=== PATIENT | female | born 1995 | race Caucasian/White ===

== ENCOUNTER 2016-12-05 03:02 | Inpatient (IN) | payer OTHER ==
[~2016-12-05] VITALS: Ht 157.5 cm; Wt 77.6 kg
[2016-12-05 03:05] VITALS: Ht 157.5 cm; Wt 77.6 kg
[2016-12-05] MEDS ORDERED: LACTATED RINGER'S 1,000 ML IV SCH (03:09)
--- NOTE | 2016-12-05 03:16 | TRIAGE ---
OB Triage Datetime Report Generated by CPN: 12/05/2016 03:15 Datetime: 12/05/2016 03:12 Time of Arrival: 12/05/2016 02:55 EGA: 38.3 Arrived By: Wheelchair Arrived From: Home Chief Complaint: w/ c/o ucs and spotting Movement: Decreased Contractions: Denies/Absent Time Contractions Began: 12/05/2016 01:30 Contractions: q5 Rupture of Membranes: Denies Vaginal Bleeding: Small Vaginal Discharge: Present Recent Sexual Intercouse: Denies Abdominal Trauma: Not Applicable Patient Complaints: Contractions Time Provider Notified: 12/05/2016 03:05 Provider Notified: Dr Hahn Datetime: 12/05/2016 03:05 Vaginal Exam Dilatation (cms): 6.0 Effacement (%): 90 Station: -1 Exam By: HARMONY DUVALL
[2016-12-05] MEDS ORDERED: PRENAT PO (03:23)
[2016-12-05] MEDS ORDERED: CALC600T11 PO (03:23)
[2016-12-05] MEDS ORDERED: FERR134T PO (03:23)
[2016-12-05 03:25] LABS: ADD SCAN DIFF NO
[2016-12-05] MEDS ORDERED: BUTORPHANOL 2 MG INJ IV PRN (03:30)
[2016-12-05] MEDS ORDERED: MISOPROSTOL 200 MCG TAB PR PRN ×2 (03:30→04:30)
[2016-12-05] MEDS ORDERED: CARBOPROST 250 MCG INJ IM PRN ×2 (03:30→04:30)
[2016-12-05] MEDS ORDERED: IBUPROFEN 600 MG TAB PO PRN (03:30)
[2016-12-05] MEDS ORDERED: AMPICILLIN 2 GM/NS (PMX) 100 ML IV ONE (03:30)
[2016-12-05] MEDS ORDERED: LACTATED RINGER'S 1,000 ML IV PRN (03:30)
[2016-12-05] MEDS ORDERED: LIDOCAINE 1% (MPF) 30 ML INJ INJ PRN (03:30)
[2016-12-05] MEDS ORDERED: METHYLERGONOVINE 0.2 MG INJ IM PRN ×2 (03:30→04:30)
[2016-12-05] MEDS ORDERED: OXYTOCIN 30 UNITS/LR 500 ML IV PRN ×2 (03:30→04:30)
[2016-12-05 03:33] LABS: BASOPHILS % 0.3 % (0.0-2.0); EOSINOPHILS # 0.1 10^3/ul (0.0-0.5); HEMATOCRIT 40.5 % (37.0-47.0); HEMOGLOBIN 13.5 g/dl (12.0-16.0); LYMPHOCYTES # 3.1 10^3/ul (0.8-2.9); LYMPHOCYTES % 29.9 % (15.0-51.0); MEAN CORPUSCULAR HEMOGLOBIN 28.7 pg (29.0-33.0); MEAN CORPUSCULAR HGB CONC 33.3 g/dl (32.0-37.0); MEAN PLATELET VOLUME 10.7 fl (7.4-10.4); MONOCYTE # 0.9 10^3/ul (0.3-0.9); MONOCYTES % 8.8 % (0.0-11.0); NEUTROPHIL # 6.1 10^3/ul (1.6-7.5); NEUTROPHILS % 59.6 % (39.0-77.0); PLATELET COUNT 281 10^3/UL (140-415); RED BLOOD COUNT 4.71 10^6/ul (4.20-5.40); RED CELL DISTRIBUTION WIDTH 13.7 % (11.5-14.5); WHITE BLOOD COUNT 10.3 10^3/ul (4.8-10.8)
[2016-12-05 03:36] VITALS: BP 138/70; PULSE 90; RESP 18
[2016-12-05 03:37] LABS: INR 0.84; PARTIAL THROMBOPLASTIN TIME 24.7 Sec (25.0-35.0); PROTIME 11.5 Sec (12.2-14.2); PT RATIO 0.9
[2016-12-05] MEDS ORDERED: LACTATED RINGER'S 1,000 ML IV* SCH (04:05)
--- NOTE | 2016-12-05 04:05 | LDN ---
Date/Time of Note Date/Time of Note DATE: 12/05/16 TIME: 04:02 Delivery Summary I was called to attend this precipitous delivery due to the rapid progression when the patient was moving from triage to labor room. She was noted to progress very quickly from 7 cm to 9 cm. Patient had care with Dr. Sotelo. Attended to delivery room. Patient was feeling urge to push. GBS results obtained and is negative. Exam showed 9 cm with bulging bag of water. AROM performed. Clear fluid was noted. Patient has significant urge to push Placenta Delivered: Spontaneously Meconium: none Perineum intact?: No (Please specify) Perineal laceration repair: First-degree laceration in the fourchette area that repaired with 3-0 chromic after local infiltration of the area with about 7-8 cc of lidocaine Anesthesia type: None Sponge & Needle done & correct: Yes All needle counts correct: Yes Any foreign bodies felt in the: No Problems: Infant Delivery Information Sex Infant Sex: male Apgars 1 Minute: 8 5 Minute: 9 Suctioning Nose & mouth suctioned at [place]: No Delee suction performed: Yes Umbilical Cord Umbilical cord with: 3 Vessels Cord presentations: no nuchal cord Cord Blood was obtained: Yes Mother & Baby Disposition Disposition Mom & Baby to Maternity; Good: Yes Mom transferred to: Other (post ) Baby to NICU: No CLARICE MARTINEZ MD Dec 05, 2016 04:05
[2016-12-05] MEDS ORDERED: DIPHENHYDRAMINE 25 MG CAP PO PRN (04:30)
[2016-12-05] MEDS ORDERED: ONDANSETRON 4 MG INJ IV PRN (04:30)
[2016-12-05] MEDS ORDERED: ACETAMINOPHEN 325 MG TAB PO PRN (04:30)
[2016-12-05] MEDS ORDERED: ZOLPIDEM 5 MG TAB PO PRN (04:30)
[2016-12-05] MEDS ORDERED: morphine 2 MG INJ IV PRN (04:30)
[2016-12-05] MEDS ORDERED: WITCH HAZEL/GLYCERIN PAD PR PRN (04:30)
[2016-12-05] MEDS ORDERED: LANOLIN 7 GM TUBE TOP PRN (04:30)
[2016-12-05] MEDS: OXYTOCIN 30 UNITS/LR 500 ML IV SCH ×2 (05:17→08:52)
[2016-12-05] MEDS: IBUPROFEN 600 MG TAB PO SCH ×4 (05:44→23:46)
[2016-12-05 06:30] VITALS: BP 134/63; PULSE 71
[2016-12-05] MEDS ORDERED: AMPICILLIN 1 GM/NS (PMX) 50 ML IV SCH (07:30)
[2016-12-05 08:30] VITALS: BP 106/47; PULSE 68; RESP 17
[2016-12-05] MEDS: SENNA/DOCUSATE NA (8.6MG/50MG) TAB PO SCH ×2 (08:49→23:46)
[2016-12-05] MEDS: MULTIVIT/MIN/FOLATE/IRON/PREN TAB PO SCH (08:49)
[2016-12-05 12:00] VITALS: BP 110/50; PULSE 72; RESP 16
[2016-12-05 16:07] VITALS: BP 110/57; PULSE 64; RESP 18
--- NOTE | 2016-12-05 18:53 | HP ---
Date/Time of Note Date/Time of Note DATE: 12/05/16 TIME: 18:50 OB - History Hx of Present Free Text/Dictation admitted in active labor at term Estimated Due Date: Dec 18, 2016 : 2 Para: 1 Care: Good Care Ultrasounds: Normal mid trimester US Obstetrical Complications: None Medical Complications: None Past Family/Social History * Past Medical, Surgical, Family and Obstetric Histories reviewed from chart. Blood Type: O+ Rubella: immune RPR/VDRL: Negative GBS Status: Negative HBsAG: Negative OB Admission Exam Vital Signs Vital Signs Vital Signs Date Time Temp Pulse Resp B/P Pulse Ox O2 Delivery O2 Flow Rate FiO2 12/05/16 16:07 98.2 64 18 110/57 Room Air Physical Exam HEENT: WNL Heart: Rhythm Normal Lungs: Clear, Equal Abdomen: WNL Extremities: Normal Reflexes: Normal Cervical Dilatation: 7cm Effacement: 100% Station: -2 Membranes: Intact Heart Rate: 130's Accelerations: Accelerations Present Decelerations: No Decelerations Varibility: Marked Contractions on Admission: < 5 Minutes Apart Date/Time Contractions Began: 12/04/2016 Frequency of Contractions: q5 Intensity: Moderate Last 72 hours Lab Results CBC & BMP 12/05/16 03:15 OB Assessment/Plan Reason for admission: active labor Other Assessment: term gestation Other plan: proceed with labor ARIS MERLOS MD Dec 05, 2016 18:53
--- NOTE | 2016-12-05 18:54 | DS ---
Date/Time of Note Date/Time of Note home next day DATE: 12/05/16 TIME: 18:53 Obstetrical Discharge Record Final Diagnosis Final Diagnosis: Term delivered Vaginal Delivery Obstetrical Delivery: Spontaneous, Laceration, Repaired Condition on Discharge Physical Assessment Last Vitals: see nurses notes Voiding: Yes Bowel Movement: Yes Breast: Soft, non-tender, Filling Fundus: Firm Abdomen and Incision: soft BS + Episiotomy: NA perineum healing Calf Tenderness: No Patient Condition: Good ARIS MERLOS MD Dec 05, 2016 18:54
--- NOTE | 2016-12-05 18:55 | PD.PPDC ---
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
[2016-12-05] MEDS ORDERED: IBUP-1542 PO (18:56)
[2016-12-05 20:15] VITALS: BP 104/58; PULSE 66; RESP 19
[2016-12-06 05:16] VITALS: BP 99/59; PULSE 75; RESP 18
[2016-12-06] MEDS: IBUPROFEN 600 MG TAB PO SCH ×2 (05:48→12:46)
[2016-12-06 08:20] VITALS: BP 101/49; PULSE 61; RESP 18
[2016-12-06] MEDS: SENNA/DOCUSATE NA (8.6MG/50MG) TAB PO SCH (09:30)
[2016-12-06] MEDS: MULTIVIT/MIN/FOLATE/IRON/PREN TAB PO SCH (09:30)
[2016-12-06 10:06] LABS: ADD SCAN DIFF NO
[2016-12-06 10:13] LABS: BASOPHILS % 0.4 % (0.0-2.0); EOSINOPHILS # 0.1 10^3/ul (0.0-0.5); EOSINOPHILS % 0.8 % (0.0-7.0); HEMOGLOBIN 12.6 g/dl (12.0-16.0); LYMPHOCYTES # 1.7 10^3/ul (0.8-2.9); LYMPHOCYTES % 15.7 % (15.0-51.0); MEAN CORPUSCULAR HGB CONC 33.2 g/dl (32.0-37.0); MEAN CORPUSCULAR VOLUME 87.6 fl (82.0-101.0); MONOCYTE # 0.7 10^3/ul (0.3-0.9); MONOCYTES % 6.2 % (0.0-11.0); NEUTROPHIL # 8.3 10^3/ul (1.6-7.5); NEUTROPHILS % 76.4 % (39.0-77.0); PLATELET COUNT 240 10^3/UL (140-415); RED BLOOD COUNT 4.34 10^6/ul (4.20-5.40); RED CELL DISTRIBUTION WIDTH 14.4 % (11.5-14.5); WHITE BLOOD COUNT 10.8 10^3/ul (4.8-10.8)
[2016-12-06] MEDS ORDERED: DIPHTH/TET/ACEL PERTUSS (ADULT) 0.5 ML VIAL IM* ONE (10:30)
[2016-12-07] MEDS ORDERED: MEASLES,MUMPS,RUBELLA VACCINE INJ SC* ONE (09:00)
[2016-12-07] MEDS ORDERED: VARICELLA VACCINE LIVE/PF 1,350 UNIT/0.5 ML ML SC* ONE (09:00)
== END 2016-12-06 15:00 | disposition home or self-care (01) | DRG 775 ==
LOC: OBT 03:02 → L-D 03:03 → OBT 03:06 → L-D 03:10 → PP1 06:09
PROVIDERS: ADMIT Obstetrics & Gynecology; ATTEND Obstetrics & Gynecology
PROC: 10E0XZZ Delivery of Products of Conception, External Approach (ICD-10-PCS; principal; 2016-12-05)
PROC: 0HQ9XZZ Repair Perineum Skin, External Approach (ICD-10-PCS; 2016-12-05)
DX: O70.0 First degree perineal laceration during delivery (principal); Z37.0 Single live birth; Z3A.38 38 weeks gestation of pregnancy
CPT/HCPCS: 85025; 85610; 85730; 86592; 86900; 86901; 87340; 90715; G0463; J0290; J2590; J7120